=== PATIENT | male | born 1985 | race Two or more races ===

== ENCOUNTER 2017-11-06 15:58 | Emergency (ER) | payer SELFPAY ==
[~2017-11-06] VITALS: Ht 170.2 cm; Wt 81.6 kg
[~2017-11-06 15:58] MED LIST: BENTYL10 MG ORAL; LIDOCAINE VISC100 ML MT; PRILOSEC20 MG ORAL; ZOFRAN4 M1 ORAL
[2017-11-06 16:15] VITALS: BP 118/79
[2017-11-06] MEDS ORDERED: FLONASE ALLERG9.9 ML NS (16:44)
[2017-11-06] MEDS ORDERED: ZYRTEC10 MG ORAL (16:44)
--- NOTE | 2017-11-06 16:46 | Emergency Room Report ---
History of Present Illness General Chief Complaint: Earache Source: Patient Present Illness HPI 32-year-old male who presents to ER for bilateral ear pain for 3 weeks. Associated symptoms include nasal congestion and sinus pressure. States that he is not taking medication for symptoms and has no other physical complaints. Denies any current n/v/f/c/d, abd pain, back pain, neck pain, photophobia, phonophobia, CP, SOB or headache. Allergies: Coded Allergies: NO KNOWN ALLERGIES (Unverified Allergy, Unknown, 07/06/15) Patient History Limited by: language barrier Past Medical History: see triage record Past Surgical History: none Pertinent Family History: none Reviewed Nursing Documentation: PMH: Agreed; PSxH: Agreed Nursing Documentation-PMH Past Medical History: No History, Except For Review of Systems All Other Systems: negative except mentioned in HPI Physical Exam Vital Signs Date Time Temp Pulse Resp B/P (MAP) Pulse Ox O2 Delivery O2 Flow Rate FiO2 11/06/17 16:10 98.0 80 18 118/79 98 Room Air 98.1 Sp02 EP Interpretation: reviewed, normal General Appearance: no apparent distress, alert, GCS 15, non-toxic Head: normocephalic, atraumatic Eyes: bilateral eye normal inspection, bilateral eye PERRL ENT: hearing grossly normal, normal pharynx, no angioedema, normal voice, TMs + canals normal, uvula midline, nasal congestion Neck: full range of motion, supple/symm/no masses Respiratory: chest non-tender, lungs clear, normal breath sounds, speaking full sentences Cardiovascular #1: regular rate, rhythm, no edema Musculoskeletal: back normal, gait/station normal, normal range of motion Neurologic: alert, oriented x3, responsive, motor strength/tone normal, sensory intact, speech normal Skin: normal color, no rash, warm/dry, well hydrated Medical Decision Making PA Attestation Dr. Mcwilliams my supervising physician with whom patient management has been discussed with. Diagnostic Impression: Primary Impression: Earache symptoms Additional Impression: Sinus congestion ER Course Pt. presents to the ED c/o ear pain Ddx considered but are not limited to AOM, AOE, Sinusitis, Eustachian tube dysfunction, TM Perf, Mastoiditis Vital signs: are WNL, pt. is afebrile H&PE are most consistent with sinus congestion ORDERS: none required at this time, the diagnosis is clinical ED INTERVENTIONS: none required at this time. DISCHARGE: At this time pt. is stable for d/c to home. Will provide printed patient care instructions, and any necessary prescriptions. Care plan and follow up instructions have been discussed with the patient prior to discharge. Last Vital Signs Date Time Temp Pulse Resp B/P (MAP) Pulse Ox O2 Delivery O2 Flow Rate FiO2 11/06/17 16:15 98.1 18 118/79 98 Room Air 98.1 11/06/17 16:10 80 Disposition: HOME, SELF-CARE Condition: Stable Scripts Fluticasone Propionate (Flonase Allergy Relief) 9.9 Ml [place].susp 2 SPRAYS NS DAILY for 7 Days, #10 ML Prov: CRYSTAL SHERIDAN 11/06/17 Cetirizine Hcl* (ZYRTEC*) 10 Mg Tablet 10 MG ORAL DAILY, #14 TAB 0 Refills Prov: CRYSTAL SHERIDAN. 11/06/17 Referrals: NOT CHOSEN [facility]/MD,REFERRING (PCP) Patient Instructions: Earache Additional Instructions: Take medication as directed. Return sooner if no improvement within 3-5 days. If sxs worsen or don't improve, please return sooner. Go to the ER if you develop SOB, CP, Rash, photophobia, neck pain, throat swelling occur, go to the ER immediately. CRYSTAL SHERIDAN November 06, 2017 16:46
[2017-11-06 16:58] VITALS: BP 118/79
== END 2017-11-06 16:58 | disposition home or self-care (01) ==
LOC: EMR 16:22
DX: H92.03 Otalgia, bilateral (principal); R09.81 Nasal congestion
CPT/HCPCS: 99284